=== PATIENT | female | born 1985 | race Caucasian/White ===

== ENCOUNTER 2023-03-25 06:01 | Day surgery (SDC) | payer BC ==
[2023-03-25] VITALS (10 sets, daily range): BP systolic 122–139; BP diastolic 71–90; PULSE 66–99; RESP 9–16; TEMP 98.1; O2SAT 81–100
[~2023-03-25] VITALS: Ht 170.2 cm; Wt 73.3 kg
[~2023-03-25 06:01] MED LIST: FEXO180T94 PO; famotidine 20mg tablet PO ONE; mvi; oxymetazoline 15 ML nasal spray NS ONE; ringers solution, lacted 1,000 ML IV SCH; tranexamic acid inj. 1,000 MG in normal saline IV soln 100ML IV ONE
[2023-03-25] MEDS ORDERED: tranexamic acid 100mg/ml inj. ONE (07:36)
[2023-03-25] MEDS ORDERED: cocaine 4% topical solution 4ml bottle ONE (07:36)
[2023-03-25] MEDS ORDERED: epiNEPHrine 1 mg/ml inj ONE (07:36)
[2023-03-25] MEDS ORDERED: mupirocin 2% ointment 22GM ONE ×2 (07:37→07:47)
[2023-03-25] MEDS ORDERED: oxymetazoline 15 ML nasal spray NS ONE ×2 (07:37→07:47)
[2023-03-25] MEDS ORDERED: LIDOcaine 1% w/EPI 1:100,000 inj. MDV 50 ML VIAL ONE (07:37)
[2023-03-25] MEDS ORDERED: sevoflurane 250ml liquid IH ONE (08:02)
[2023-03-25] MEDS ORDERED: morphine 4 MG/ML inj SYRINge IV PRN (08:10)
[2023-03-25] MEDS ORDERED: morphine 2 MG/ML inj. syringe IV PRN (08:10)
[2023-03-25] MEDS ORDERED: labetalol 20mg/4ml (5mg/ml) syringe IV PRN (08:10)
[2023-03-25] MEDS ORDERED: ondansetron/PF 4mg/2ml inj IV PRN (08:10)
[2023-03-25] MEDS ORDERED: hydrALAZINE 20mg/ml inj. IV PRN (08:10)
[2023-03-25] MEDS ORDERED: proCHLORperazine 10 MG/2 ml inj IV PRN (08:10)
[2023-03-25] MEDS ORDERED: acetaminophen 1,000mg/100ml IV 100 ML IV PRN (08:10)
[2023-03-25] MEDS ORDERED: meperidine/PF 25mg/ml syringe IV PRN ×3 (08:10)
[2023-03-25] MEDS ORDERED: ringers solution, lacted 1,000 ML IV SCH (08:10)
[2023-03-25] MEDS ORDERED: fentaNYL/PF 50MCG/1 ML 2ML syringe ONE (08:11)
[2023-03-25] MEDS ORDERED: dexamethasone sod phosphate 4mg/ml inj. ONE (08:21)
[2023-03-25] MEDS ORDERED: midazolam 1 mg/ML 2ml injection ONE (08:21)
[2023-03-25] MEDS ORDERED: ondansetron/PF 4mg/2ml inj ONE (08:23)
[2023-03-25] MEDS ORDERED: LIDOcaine 2% (20mg/ml) 5ml vial ONE (08:23)
[2023-03-25] MEDS ORDERED: propofol inj 20 ML IV ONE ×3 (08:23→10:14)
--- NOTE | 2023-03-25 10:25 | NUR ---
Received from OR via [facility], accompanied by Anesthesiologist DR BOND and report given by Anesthesiologist. PT IS GROGGY BUT RESPONDS TO VERBAL STIMULI AND FOLLOWS COMMANDS. PT PLACED ON BEDSIDE MONITOR, VSS. PT IS IN SR WITH RATE IN 90'S. PT IS RECEIVING 8L 02 TO MASK AND TOLERATING WELL WITH O2 SAT > 96%, WILL TITRATE DOWN PT TOLERATES. PT HAS 20G PIV TO RT HAND WITH LR INFUSING ORDERED. PT HAS COTTONOIDS TO BILAT NARES. PT DENIES PAIN AT THIS TIME. WILL CONTINUE TO ASSESS
[2023-03-25] MEDS ORDERED: salt irrigation nasal spray 45 ML SPRAY NS PRN (11:10)
[2023-03-25] MEDS ORDERED: mupirocin 2% nasal ointment 1gm UD NS ONE (11:25)
--- NOTE | 2023-03-25 12:00 | NUR ---
ALL DISCHARGE CRITERIA HAS BEEN MET. VSS, PAIN AT A TOLERABLE LEVEL AND ABLE TO SAFELY AMBULATE AND TRANSFER SELF. IV TAKEN OUT WITHOUT ANY COMPLICATIONS. ALL DISCHARGE INSTRUCTIONS COVERED WITH PATIENT AND ALL QUESTIONS ANSWERED. PATIENT TAKEN OUT VIA WHEELCHAIR TO PERSONAL VEHICLE WHERE MOTHER SARAH BETH DROVE PATIENT HOME.
== END 2023-03-25 11:55 | disposition home or self-care (01) ==
LOC: PAS 06:01
PROVIDERS: ATTEND Otolaryngology
DX: J34.2 Deviated nasal septum (principal); J34.3 Hypertrophy of nasal turbinates; J32.8 Other chronic sinusitis; J33.8 Other polyp of sinus; J45.909 Unspecified asthma, uncomplicated; G43.909 Migraine, unspecified, not intractable, without status migrainosus; Z88.0 Allergy status to penicillin; Z98.890 Other specified postprocedural states; Z79.899 Other long term (current) drug therapy
CPT/HCPCS: 30140; 30520; 31259; 31267; 31276; 61782; 82948; A6402; J0131; J1100; J2175; J2250; J2405; J2704; J3010; J3490; J7030; J7050; J7120; Z7506; Z7508; Z7512; A4618; A6449; A7000; J0171